=== PATIENT | male | born 1945 | race Caucasian/White ===

== ENCOUNTER 2024-12-30 09:50 | Emergency (ER) | payer MEDICARE, OTHER ==
[2024-12-30 10:22] LABS: #Basophils Less than 0.03 10x3/uL (0.0-0.2); #Eosinophils 0.10 10x3/uL (0.0-0.7); #Monocytes 0.96 10x3/uL (0.11-0.59); #Neutrophils 5.11 10x3/uL (1.40-6.50); %Basophils 0.2 % (0.0-1.0); %Eosinophils 1.2 % (0.0-10.0); %Lymphocytes 25.4 % (21.0-51.0); %Monocytes 11.5 % (0.0-10.0); %Neutrophils 61.3 % (42.0-75.0); Hematocrit 43.1 % (42.0-52.0); Hemoglobin 14.5 g/dL (14.0-18.0); Mean Corpuscular Hemoglobin 32.6 pg (27.0-31.0); Mean Corpuscular Volume 96.9 fL (78.0-98.0); Platelet Count 190 10x3/uL (130-400); Red Blood Cell (RBC) Count 4.45 mill/uL (4.70-6.10); White Blood Cell (WBC) Count 8.34 10x3/uL (4.8-10.8)
[2024-12-30] MEDS ORDERED: Iopamidol-370 76% 500 ML MDV (1 ML CHARGE) ONE (10:25)
[2024-12-30 10:45] LABS: ALT (SGPT) 14 U/L (Less than 45); AST (SGOT) 25 U/L (11-34); Albumin 3.7 g/dL (3.1-4.5); Alkaline Phosphatase 72 U/L (40-110); Anion Gap 15 mmol/L (10-20); BUN (Urea Nitrogen) 21 mg/dL (8.4-25.7); Bilirubin, Total 0.6 mg/dL (0.3-1.2); Calc. Creatinine Clearance 0 mL/min (70-130); Calcium 9.2 mg/dL (7.8-10.44); Carbon Dioxide 21 mmol/L (23-31); Chloride 107 mmol/L (98-107); Globulin 3.5 g/dL (2.4-3.5); Glucose 96 mg/dL (83-110); Potassium 4.6 mmol/L (3.5-5.1); Sodium 138 mmol/L (136-145)
[2024-12-30] MEDS ORDERED: Heparin 5,000 UNITS/ML VIAL ONE (11:46)
== END 2024-12-30 14:14 | disposition short-term general hospital (02) ==
LOC: ERS 09:50
DX: I26.99 Other pulmonary embolism without acute cor pulmonale (principal); I10 Essential (primary) hypertension; Z79.899 Other long term (current) drug therapy; Z55.6 Problems related to health literacy; R06.02 Shortness of breath
CPT/HCPCS: 71045; 71275; 80053; 83880; 84484; 85025; 85379; 85730; 93005; 93971; 96365; 96366; 99285; J1644 ×2; Q9967